=== PATIENT | female | born 1935 | race Caucasian/White ===

== ENCOUNTER 2016-09-29 13:46 | Inpatient (IN) | payer MEDICARE, BC ==
[~2016-09-29] VITALS: Ht 167.6 cm; Wt 58.8 kg
[~2016-09-29 13:46] MED LIST: CALCIUM CITRATE1 TA5 PO; CARDI-OMEGA1000 MG PO; CATAPRES0.3 MG PO; CENTRUM SILVER1 TA1 PO; COUMADIN 5MG5 MG/TAB PO; FLAX OIL1000 MG PO; GARLIC OIL500 MG PO; LANOXIN 0.120.125 MG PO; LIPITOR 10MG10 MG PO; LOPRESSOR 550 MG/TAB PO; LOVENOX 100100 MG/ML; NORVASC 5MG5 MG/TAB PO; PROTONIX 40MG T40 MG PO; PROZAC 10MG10 MG PO; QVAR0.08 MG/AC IH; RITE AID MELATON5 MG PO; RT SPIRIVA18 MCG IH; SYNTHROID 0.10.15 MG PO; TOPROL XL 50MG50 MG PO; TRAVATAN Z 2.52.5 ML OU; TYLENOL PM EXTR1 TA1 PO; ULTRAM 50MG TAB50 MG PO; VITAMIN C500 MG PO; VITAMIN D32000 IU PO; VITAMIN E1000 U/CAP PO; ZESTRIL40 MG PO; acetaminophen pm PO; soy lecithin PO
[2016-11-01] MEDS ORDERED: NORVASC 10MG10 MG PO (12:37)
[2016-11-01] MEDS ORDERED: SYNTHROID0.125 MG/T PO (12:40)
[2016-11-01] MEDS ORDERED: LASIX 20MG TABL20 MG PO (12:41)
[2016-11-01] MEDS ORDERED: TOPROL XL100 MG PO (12:41)
[2016-11-01] MEDS ORDERED: NATURE'S BLEN1200 MG PO (12:45)
[2016-11-01] MEDS ORDERED: FERROUS SU325 MG/TAB PO (12:48)
[2016-11-01] MEDS ORDERED: FOLIC ACID 40400 MCG PO (12:48)
[2016-12-06] VITALS (9 sets, daily range): BP systolic 98–126; BP diastolic 40–79; PULSE 51–72; TEMP 96.8–98.3
[2016-12-06] MEDS ORDERED: LOVENOX 4040 MG/0.4 SQ (08:17)
[2016-12-06 08:31] LABS: INR 1.1 (0.8-3.0); PROTHROMBIN TIME 11.8 SECONDS (9.7-12.8)
[2016-12-07 00:38] VITALS: BP 117/45; PULSE 59; TEMP 97.9
[2016-12-07 03:50] VITALS: BP 116/47; PULSE 58; TEMP 98.1
[2016-12-07 07:20] VITALS: BP 127/44; PULSE 58; TEMP 98.4
[2016-12-07 07:49] LABS: PROTHROMBIN TIME 11.6 SECONDS (9.7-12.8)
[2016-12-07 07:55] LABS: HEMATOCRIT 35.6 % (37.0-47.0); HEMOGLOBIN 11.5 g/dl (12.5-16.0)
[2016-12-07 11:35] VITALS: BP 110/45; PULSE 62; TEMP 98.1
[2016-12-07 15:53] VITALS: BP 122/45; PULSE 58; TEMP 98
[2016-12-07 19:28] VITALS: BP 140/41; PULSE 65; TEMP 99.5
[2016-12-08 00:24] VITALS: BP 136/44; PULSE 66; TEMP 98.5
[2016-12-08 05:17] VITALS: BP 138/43; PULSE 65; TEMP 99.6
[2016-12-08 06:48] LABS: HEMATOCRIT 34.7 % (37.0-47.0); HEMOGLOBIN 11.3 g/dl (12.5-16.0)
[2016-12-08 06:51] LABS: PROTHROMBIN TIME 22.8 SECONDS (9.7-12.8)
[2016-12-08 07:27] VITALS: BP 141/92; PULSE 63; TEMP 98.5
[2016-12-08 16:20] VITALS: BP 132/45; PULSE 57; TEMP 98.4
[2016-12-08 19:49] VITALS: BP 125/46; PULSE 58; TEMP 98.9
[2016-12-08 23:34] VITALS: BP 130/45; PULSE 53; TEMP 98.1
[2016-12-09 03:12] VITALS: BP 106/46; PULSE 59; TEMP 98.6
[2016-12-09 06:11] LABS: HEMATOCRIT 36.1 % (37.0-47.0); HEMOGLOBIN 11.7 g/dl (12.5-16.0); PROTHROMBIN TIME 22.1 SECONDS (9.7-12.8)
[2016-12-09] MEDS ORDERED: COUMADIN 1MG1 MG/TAB PO (06:51)
[2016-12-09] MEDS ORDERED: NORCO 325 MG-51 TAB PO (06:52)
[2016-12-09] MEDS ORDERED: SENOKOT S 50 MG1 TAB PO (06:53)
[2016-12-09 08:04] VITALS: BP 141/45; PULSE 68; TEMP 99
[2016-12-09 12:12] VITALS: BP 104/43; PULSE 58; TEMP 97.9
== END 2016-12-09 15:56 | disposition home or self-care (01) | DRG 470 ==
LOC: JCC 11-17 07:30
PROVIDERS: Orthopaedic Surgery
PROC: 0QPG04Z Removal of Internal Fixation Device from Right Tibia, Open Approach (ICD-10-PCS; 2016-12-06)
PROC: 0SRC0J9 Replacement of Right Knee Joint with Synthetic Substitute, Cemented, Open Approach (ICD-10-PCS; principal; 2016-12-06 10:30)
DX: M17.11 Unilateral primary osteoarthritis, right knee (principal); I10 Essential (primary) hypertension
CPT/HCPCS: A4315; A9284; C1713; C1776; J0690; J1100; J1650; J2250; J2405; J2704; J3010; J7120

== ENCOUNTER → 2016-09-30 | Outpatient (CLI) | payer MEDICARE, BC ==
[~2016-09-30] MED LIST changes: +COUMADIN 1MG1 MG/TAB PO; +FERROUS SU325 MG/TAB PO; +FOLIC ACID 40400 MCG PO; +LASIX 20MG TABL20 MG PO; +LOVENOX 4040 MG/0.4 SQ; +NATURE'S BLEN1200 MG PO; +NORCO 325 MG-51 TAB PO; +NORVASC 10MG10 MG PO; +SENOKOT S 50 MG1 TAB PO; +SYNTHROID0.125 MG/T PO; +TOPROL XL100 MG PO
== END ==
LOC: COL.LAB 13:59 → COL.VAS 13:59
DX: Z01.818 Encounter for other preprocedural examination (principal); Z86.718 Personal history of other venous thrombosis and embolism

== ENCOUNTER → 2016-11-01 | Outpatient (CLI) | payer MEDICARE, BC | LOC: COL.LAB 13:28 | DX: Z01.812 Encounter for preprocedural laboratory examination (principal); M25.861 Other specified joint disorders, right knee ==

== ENCOUNTER → 2018-04-21 | Outpatient (CLI) | payer MEDICARE, BC | LOC: COL.LAB 11:01 | DX: Z01.812 Encounter for preprocedural laboratory examination (principal) ==

== ENCOUNTER 2018-10-24 16:55 | Inpatient (IN) | payer MEDICARE, BC ==
[~2018-10-24] VITALS: Ht 167.6 cm; Wt 68.0 kg
[~2018-10-24 16:55] MED LIST changes: +CARDIZEM CD 18180 MG PO; +COUMADIN4 MG PO; +FLOVENT 110MCG7.9 GM IH; +IPRATROPIUM BROM3 M1 IH; +K-DUR20 MEQ PO; +NORCO 325 MG-7.1 TAB PO; +ONE DAILY1 TA1 PO; +TYLENOL 500MG500 MG PO
[2018-10-24 17:14] VITALS: BP 150/49; PULSE 69; TEMP 98
[2018-10-24] MEDS ORDERED: FLONASE NASAL S16 GM NS (17:37)
--- NOTE | 2018-10-24 18:45 | NUR ---
Patient up to room 345 with EMS. Alert and oriented x3. Patient and family oriented to room. Initial and 5 page complete. Pedal pulses intact. Cap refill <3 sec. BLE cool and dry to touch. Lesion noted to left gallagher with bandaids over, patient states it is from getting her leg caught on car door a couple of weeks ago . Tedhose applied to LLE. Stated pain to right hip and calf 6/10, medications given per orders. INT to left forarm. Denies further needs at this time. Reported off to machinist 2nd shift,
[2018-10-24 19:35] VITALS: BP 154/49; PULSE 75; TEMP 98.7
--- NOTE | 2018-10-24 20:00 | NUR ---
Pt. laying in bed at this time. Pt. is A&OX3, assessment complete. INT to lt. forearm patent. Pt. reports pain at a 7 on pain scale, gave pain meds per orders. Pt. denies further needs at this time. Call light within reach.
[2018-10-24 20:58] LABS: PH 6 (5-8); SQUAMOUS EPITHELIAL 0-2 /hpf; URINE APPEARANCE Clear; URINE BACTERIA None Seen /hpf; URINE BILIRUBIN Negative (NEGATIVE); URINE BLOOD Negative (NEGATIVE); URINE COLOR Yellow; URINE GLUCOSE Negative (NEGATIVE); URINE KETONE Negative (NEGATIVE); URINE LEUKOCYTE ESTERASE Negative (NEGATIVE); URINE NITRATE Negative (NEGATIVE); URINE PROTEIN(semi-quant) Negative (NEGATIVE); URINE UROBILINOGEN Negative (NEGATIVE)
[2018-10-24 21:08] LABS: COLLECTION METHOD CLEAN CATCH
[2018-10-24 23:51] VITALS: BP 145/51; PULSE 80; TEMP 98.6
[2018-10-25] VITALS (135 sets, daily range): BP systolic 115–177; BP diastolic 52–82; PULSE 86–132; TEMP 98–100.1; O2SAT 97–99
--- NOTE | 2018-10-25 05:57 | NUR ---
Pt. slept off and on through the night. Pt. remains A&OX3. IV to lt. forearm remains patent, IV fluids infusing per orders. Fuller catheter to DD, clear yellow urine noted. Pt. given morphine this am for pain. Pt. denies further needs, call light within reach.
--- NOTE | 2018-10-25 06:45 | NUR ---
Reported on to primary nurse Sheila ALEXANDRE.
--- NOTE | 2018-10-25 07:15 | NUR ---
Pt alert & oriented x4. States pain 4/10 in R Hip that radiates down to R thigh. Describes as an intermittent aching pain. Notified primary nurse Sheila ALEXANDRE about pain for administration of Morphine. Pt stated she didn't want the SCDs or Nael Hose on her R calf. SCDs and Nael Hose were only put on L calf. Bilateral upper lobes clear, bilateral lower lobes sounded slightly diminished. Encouraged use of IS. IV in L forearm CDI, no redness or tenderness. D5 1/2 NS 1000 ml running @ 60 ml/hr. Telemetry on.
[2018-10-25 07:20] LABS: INR 1.9 (0.8-3.0); PROTHROMBIN TIME 21.5 SECONDS (9.7-12.8)
[2018-10-25 07:21] LABS: BASO % 0.2 % (0.0-2.0); EOS % 0.4 % (0-4.0); GRAN # 5.3 (1.4-6.5); GRAN % 64.9 % (42.2-75.2); HEMOGLOBIN 10.3 g/dl (12.5-16.0); LYMPH # 1.7 (1.2-3.4); LYMPH % 20.7 % (20.0-51.0); MEAN CELL VOLUME 93 fl (80.0-100.0); MEAN CORPUSCULAR HEMOGLOBIN 30 pg (27.0-31.0); MEAN CORPUSCULAR HGB CONC 32 g/dl (33.0-37.0); MEAN PLATELET VOLUME 9.7 fl (7.4-10.4); MONO # 1.1 (0.1-0.6); MONO % 13.6 % (1.7-9.3); PLATELET COUNT 195 K/mm3 (130-400); RED BLOOD COUNT 3.49 M/mm3 (4.10-5.30); REDCELL DISTRIBUTION WIDTH-CV 14.8 % (11.5-14.5)
[2018-10-25 07:25] LABS: HEMATOCRIT 32.3 % (37.0-47.0)
[2018-10-25 07:31] LABS: CALCIUM 8.8 mg/dL (8.4-10.2); CREATININE, serum 0.82 mg/dL (0.52-1.25)
--- NOTE | 2018-10-25 10:01 | NUR ---
SW attended clinical rounds to discuss discharge planning. Patient lives independently at home with her . Patient's PCP is Dr Aguilar and she obtains prescriptions from [facility]. Patient does not use any home health or DME. Patient will have surgery but it is undecided when. Patient and report that if post acute rehab is needed, patient would prefer [facility]. SW will follow up with patient and after surgery with rehab choice form.
--- NOTE | 2018-10-25 10:22 | NUR ---
Initial visit; FARSHAD and her thanked Ruby On Rails Engineer for looking in on her and offering encouragement and prayer and keeping BJ in Ruby On Rails Engineer's prayers.
--- NOTE | 2018-10-25 11:50 | NUR ---
Reported off to primary nurse Sheila ALEXANDRE. Notified her of elevated temperature of 99.4. Helped pt w/ IS x4 up to 1250 ml and CDB x3.
--- NOTE | 2018-10-25 12:30 | NUR ---
Patient has been doing well. She is having a lot of pain today. No complaints of nausea. Her family has been at bedside. The student helped her get cleaned up today. No complaints of nausea. Explained the plan to her and her daughter for possible surgery this afternoon. No other changes at this time. Call light within reach. This nurse agrees with student nurses assessment.
[2018-10-25 13:53] LABS: INR 1.4 (0.8-3.0); PROTHROMBIN TIME 16.3 SECONDS (9.7-12.8)
--- NOTE | 2018-10-25 14:30 | NUR ---
Patient is going to surgery at this time. Pre-ops given. Consent on chart. Family is with patient.
--- NOTE | 2018-10-25 18:11 | NUR ---
Report received from HARVEST WORKERMarilou.
--- NOTE | 2018-10-25 18:25 | NUR ---
Pt arrived to ICU bed 2 from PACU via bed. Pt resting, easily arousable, oriented to person and time. Pt moans with movement to ICU bed. HR ST 130s on monitor. SBP 160s. Pt able to wiggle toes on right foot on command. Marilyn hospitalist ABHIJIT at bedside.
[2018-10-25 18:52] LABS: BASO % 0.2 % (0.0-2.0); EOS % 0.1 % (0-4.0); HEMOGLOBIN 10.6 g/dl (12.5-16.0); LYMPH # 2.7 (1.2-3.4); LYMPH % 18.1 % (20.0-51.0); MEAN CELL VOLUME 93 fl (80.0-100.0); MEAN CORPUSCULAR HEMOGLOBIN 30 pg (27.0-31.0); MEAN CORPUSCULAR HGB CONC 32 g/dl (33.0-37.0); MEAN PLATELET VOLUME 9.7 fl (7.4-10.4); MONO # 1.1 (0.1-0.6); MONO % 7.2 % (1.7-9.3); PLATELET COUNT 188 K/mm3 (130-400); RED BLOOD COUNT 3.58 M/mm3 (4.10-5.30); REDCELL DISTRIBUTION WIDTH-CV 14.6 % (11.5-14.5)
[2018-10-25 18:56] LABS: CALCIUM 9.1 mg/dL (8.4-10.2); CREATININE, serum 0.86 mg/dL (0.52-1.25); HEMATOCRIT 33.3 % (37.0-47.0); MAGNESIUM 1.6 mg/dL (1.6-2.3); POTASSIUM 4.4 mmol/L (3.4-5.0)
--- NOTE | 2018-10-25 19:35 | NUR ---
Bedside report received from Kailyn DICK. Pt is resting in bed with eyes open. Daughter Gina and Dr. Castro were previously here, daughter phone number to this nurse and unit phone number provided to daughter with 4 digit passcode.
--- NOTE | 2018-10-25 19:45 | NUR ---
Report given to MAYELIN Rosenbaum.
--- NOTE | 2018-10-25 19:50 | NUR ---
Pt assessment complete. Pt resting in bed currently. Pt denies any current pain. Is alert and oriented. Speech is clear and demonstrates making wants and needs known to staff at this time. Left henny hose in place with SCD. Scant drainage noted to left IV dressing.
[2018-10-26] VITALS (77 sets, daily range): BP systolic 127; BP diastolic 71; PULSE 92; TEMP 97.9; O2SAT 93–98
--- NOTE | 2018-10-26 13:37 | NUR ---
LAYNE and SW student met with the patient and patient's to discuss post-acute rehab options and presented and explained the patient choice form. The patient preferred [facility] and she did not have a second preference. Patient choice form signed by the patient's , Home, and he was provided a copy. LAYNE contacted Elissa at [facility]. Elissa reports that they can accept the patient for [facility] and that they can even accept her on the weekend. SW to continue to follow.
[2018-10-27] VITALS (46 sets, daily range): BP systolic 107–155; BP diastolic 35–56; PULSE 81–106; TEMP 97.6–99.4; O2SAT 89–96
[2018-10-27 12:24] LABS: BASO % 0.3 % (0.0-2.0); EOS # 0.1 (0.0-0.7); EOS % 0.6 % (0-4.0); GRAN # 11.1 (1.4-6.5); GRAN % 77.1 % (42.2-75.2); LYMPH # 1.9 (1.2-3.4); LYMPH % 13.6 % (20.0-51.0); MEAN CELL VOLUME 91 fl (80.0-100.0); MEAN CORPUSCULAR HGB CONC 33 g/dl (33.0-37.0); MEAN PLATELET VOLUME 9.9 fl (7.4-10.4); MONO # 1.1 (0.1-0.6); MONO % 7.9 % (1.7-9.3); PLATELET COUNT 136 K/mm3 (130-400); REDCELL DISTRIBUTION WIDTH-CV 14.5 % (11.5-14.5)
[2018-10-27 12:25] LABS: HEMATOCRIT 27.2 % (37.0-47.0); HEMOGLOBIN 8.9 g/dl (12.5-16.0); MEAN CORPUSCULAR HEMOGLOBIN 30 pg (27.0-31.0)
--- NOTE | 2018-10-27 13:53 | NUR ---
SW attended clinical rounds. Patient has been accepted to [facility]. SW informed patient and of this.
[2018-10-27 14:05] LABS: CALCIUM 8.6 mg/dL (8.4-10.2); CREATININE, serum 0.93 mg/dL (0.52-1.25); MAGNESIUM 1.9 mg/dL (1.6-2.3); POTASSIUM 4.3 mmol/L (3.4-5.0)
[2018-10-27 15:25] LABS: CALCIUM 8.5 mg/dL (8.4-10.2); CREATININE, serum 0.84 mg/dL (0.52-1.25); POTASSIUM 3.9 mmol/L (3.4-5.0)
[2018-10-27 15:35] LABS: INR 1.2 (0.8-3.0); PROTHROMBIN TIME 13.6 SECONDS (9.7-12.8)
[2018-10-27 16:12] LABS: BASO % 0.3 % (0.0-2.0); EOS # 0.2 (0.0-0.7); EOS % 2.2 % (0-4.0); GRAN # 6.9 (1.4-6.5); GRAN % 69.7 % (42.2-75.2); LYMPH # 1.6 (1.2-3.4); LYMPH % 15.9 % (20.0-51.0); MEAN CELL VOLUME 92 fl (80.0-100.0); MEAN CORPUSCULAR HGB CONC 32 g/dl (33.0-37.0); MEAN PLATELET VOLUME 10.4 fl (7.4-10.4); MONO # 1.1 (0.1-0.6); MONO % 11.3 % (1.7-9.3); PLATELET COUNT 122 K/mm3 (130-400); RED BLOOD COUNT 2.35 M/mm3 (4.10-5.30); REDCELL DISTRIBUTION WIDTH-CV 14.1 % (11.5-14.5)
[2018-10-27 16:13] LABS: HEMATOCRIT 21.7 % (37.0-47.0); HEMOGLOBIN 6.9 g/dl (12.5-16.0); MEAN CORPUSCULAR HEMOGLOBIN 29 pg (27.0-31.0)
--- NOTE | 2018-10-27 16:55 | NUR ---
Contacted Lisa MOJICA, Blood has finished transfusing. Patient c/o chills, denies pain or shortness of breath. Patient BP slightly elevated, tachy, and slight temperature elevation of 99.2. No change per PA. Will continue to monitor
--- NOTE | 2018-10-27 17:32 | NUR ---
Patient was up in chair for the majority of the day. Patient was assisted back to bed with physical therapy and walker. Patient in bed sleeping. Denies pain at this time. Denies further needs at this time. Fuller maintined to dependent drainage with clear yellow urine present. Denies further needs at this time.
[2018-10-27 18:17] LABS: COLLECTION METHOD CATHETER
[2018-10-27 19:00] LABS: MUCOUS Present /lpf; PH 9 (5-8); SQUAMOUS EPITHELIAL None Seen /hpf; URINE APPEARANCE Cloudy; URINE BACTERIA Rare /hpf; URINE BILIRUBIN Negative (NEGATIVE); URINE BLOOD Negative (NEGATIVE); URINE COLOR Yellow; URINE GLUCOSE Negative (NEGATIVE); URINE KETONE Negative (NEGATIVE); URINE LEUKOCYTE ESTERASE Negative (NEGATIVE); URINE NITRATE Negative (NEGATIVE); URINE PROTEIN(semi-quant) 2+ (NEGATIVE); URINE UROBILINOGEN Negative (NEGATIVE)
--- NOTE | 2018-10-27 20:30 | NUR ---
Pt. laying in bed with family at bedside. Pt. is A&OX3, assessment complete. IV to lt. forearm patent, IV fluids infusing per orders. Dressings to rt. hip CDI with gauze. Pt. reported pain at an 8 on pain scale, gave pain meds per orders. Pt. denies further needs, call light within reach.
[2018-10-27 23:18] LABS: HEMATOCRIT 25.3 % (37.0-47.0); HEMOGLOBIN 8.3 g/dl (12.5-16.0)
[2018-10-28] VITALS: BP 129/51; PULSE 96; TEMP 98.4
[2018-10-28 07:37] LABS: BASO % 0.4 % (0.0-2.0); EOS # 0.4 (0.0-0.7); EOS % 4.4 % (0-4.0); GRAN % 71.8 % (42.2-75.2); LYMPH % 11.5 % (20.0-51.0); MEAN CELL VOLUME 92 fl (80.0-100.0); MEAN CORPUSCULAR HGB CONC 32 g/dl (33.0-37.0); MEAN PLATELET VOLUME 10.2 fl (7.4-10.4); MONO # 0.9 (0.1-0.6); MONO % 11.3 % (1.7-9.3); PLATELET COUNT 144 K/mm3 (130-400); RED BLOOD COUNT 2.71 M/mm3 (4.10-5.30); REDCELL DISTRIBUTION WIDTH-CV 14.7 % (11.5-14.5)
[2018-10-28 07:38] VITALS: BP 114/44; PULSE 94; TEMP 98.6
[2018-10-28 07:42] LABS: CALCIUM 8.5 mg/dL (8.4-10.2); CREATININE, serum 0.75 mg/dL (0.52-1.25); POTASSIUM 4.1 mmol/L (3.4-5.0)
[2018-10-28 07:48] LABS: HEMATOCRIT 24.8 % (37.0-47.0); MEAN CORPUSCULAR HEMOGLOBIN 30 pg (27.0-31.0)
--- NOTE | 2018-10-28 08:00 | NUR ---
Patient in bed resting. Alert and oriented x 3. Shift assessment complete. Dressing to right lateral leg x3, CDI. Edema noted to BLE, +2 pitting. IV fluids infusing per orders via pump to left forarm. Tedhose to LLE. SCDS to BLE. States mild pain to right hip, will let nursing staff when she feels like she needs something for pain. Denies further needs at this time.
[2018-10-28 12:21] VITALS: BP 169/55; PULSE 110; TEMP 99
--- NOTE | 2018-10-28 14:50 | NUR ---
Assisted patient to comode, x2 assist with gait belt and walker. Patient had a small BM
[2018-10-28 16:17] VITALS: BP 151/61; PULSE 88; TEMP 98.3
--- NOTE | 2018-10-28 17:49 | NUR ---
Patient has been up in chair throughout the day. X2 assist with walker and gait belt back to bed. Spouse at bedside. SCDs to BLE maintained while in bed. Patient refused dinner. Lidocaine patch to right hip. Has requested pain medication through the day, given medication per orders. Spouse at bedside. Denies further needs at this time. Will report off to slot shift manager.
[2018-10-28 19:16] VITALS: BP 152/54; PULSE 97; TEMP 100.2
--- NOTE | 2018-10-28 23:08 | NUR ---
RESTING QUIETLY. NO c/o PAIN AT REST. NO N/V. DRESSINGS TO RT HIP APPEAR CD&I. PALPABLE PEDAL PULSES.
[2018-10-28 23:55] VITALS: BP 135/47; PULSE 90; TEMP 98.4
[2018-10-29 03:59] VITALS: BP 137/43; PULSE 83; TEMP 98.2
--- NOTE | 2018-10-29 06:44 | NUR ---
RESTING QUIETLY. NO c/o N/V. PT DENIED NEED FOR PAIN MEDS DURING THE NIGHT.
[2018-10-29 07:42] LABS: BASO % 0.4 % (0.0-2.0); EOS # 0.4 (0.0-0.7); EOS % 5.4 % (0-4.0); GRAN # 4.7 (1.4-6.5); GRAN % 66.2 % (42.2-75.2); LYMPH # 1.1 (1.2-3.4); LYMPH % 15.9 % (20.0-51.0); MEAN CELL VOLUME 93 fl (80.0-100.0); MEAN CORPUSCULAR HGB CONC 31 g/dl (33.0-37.0); MEAN PLATELET VOLUME 9.9 fl (7.4-10.4); MONO # 0.8 (0.1-0.6); MONO % 11.5 % (1.7-9.3); PLATELET COUNT 182 K/mm3 (130-400); RED BLOOD COUNT 2.66 M/mm3 (4.10-5.30); REDCELL DISTRIBUTION WIDTH-CV 14.6 % (11.5-14.5)
[2018-10-29 07:50] LABS: INR 1.2 (0.8-3.0); PROTHROMBIN TIME 14.1 SECONDS (9.7-12.8)
[2018-10-29 07:52] LABS: HEMATOCRIT 24.7 % (37.0-47.0); HEMOGLOBIN 7.7 g/dl (12.5-16.0); MEAN CORPUSCULAR HEMOGLOBIN 29 pg (27.0-31.0)
[2018-10-29 07:55] LABS: CALCIUM 8.6 mg/dL (8.4-10.2); CREATININE, serum 0.8 mg/dL (0.52-1.25); POTASSIUM 4.2 mmol/L (3.4-5.0)
[2018-10-29 08:07] VITALS: BP 139/52; PULSE 89; TEMP 98.8
[2018-10-29] MEDS ORDERED: DULCOLAX S10 MG/SUPP RC (12:01)
[2018-10-29] MEDS ORDERED: DULCOLAX STOOL100 MG PO (12:01)
[2018-10-29] MEDS ORDERED: Lidocaine 4% Patch TP (12:02)
[2018-10-29] MEDS ORDERED: NORCO 325 MG-7.1 TAB PO (12:03)
[2018-10-29] MEDS ORDERED: LOVENOX 3030 MG/0.3 SQ (12:04)
[2018-10-29 12:09] VITALS: BP 102/43; PULSE 75; TEMP 98.8
--- NOTE | 2018-10-29 13:34 | NUR ---
railway traction line worker contacted [facility] and spoke with Zehra Kuo ([phone]) regarding the patient's possibility of discharging via [facility] to [facility] and [place] reported that due to only one ambulance being in service and bad road conditions from inclement snowy weather they are not able to transport that patient safely today. railway traction line worker set-up discharge transportation via [facility] for 10/30/18, at 10-10:30am. railway traction line worker informed patient's and nurse Christiane of patient's discharge plan. railway traction line worker also updated Tyce at [facility] of the patient's discharge plan (phone number [phone] and fax number [phone]). fiscal services director will follow up tomorrow to fax discharge orders and information.
[2018-10-29 16:15] VITALS: BP 113/45; PULSE 78; TEMP 99
--- NOTE | 2018-10-29 18:00 | NUR ---
Complained of pain in legs and inability to move legs. Encouraged to do ankle pumps. Pain improved with prn [place] and Morphine. Transferred to commode in PM with two staff assist. Holds onto walker but unable to take steps. Returned to bed. Family at bedside this shift.
[2018-10-29 19:36] VITALS: BP 119/51; BP 125/56; PULSE 85; TEMP 99.6; TEMP 99.8
[2018-10-30 00:34] VITALS: BP 125/45; PULSE 85; TEMP 99.7
[2018-10-30 03:59] VITALS: BP 125/38; PULSE 88; TEMP 99.1
[2018-10-30 04:08] VITALS: BP 180/95; PULSE 96; TEMP 97.4
--- NOTE | 2018-10-30 05:03 | NUR ---
RESTING QUIETLY. PT HAS DENIED NEED FOR PAIN MEDS DURING THE NIGHT. NO N/V. DRESSINGS TO RT HIP CD&I.
[2018-10-30 06:11] LABS: BASO % 0.4 % (0.0-2.0); EOS # 0.3 (0.0-0.7); GRAN # 5.2 (1.4-6.5); GRAN % 61.4 % (42.2-75.2); LYMPH # 1.6 (1.2-3.4); LYMPH % 18.9 % (20.0-51.0); MEAN CELL VOLUME 93 fl (80.0-100.0); MEAN CORPUSCULAR HGB CONC 32 g/dl (33.0-37.0); MEAN PLATELET VOLUME 9.5 fl (7.4-10.4); MONO # 1.2 (0.1-0.6); MONO % 14.4 % (1.7-9.3); PLATELET COUNT 211 K/mm3 (130-400); RED BLOOD COUNT 2.56 M/mm3 (4.10-5.30); REDCELL DISTRIBUTION WIDTH-CV 14.5 % (11.5-14.5)
[2018-10-30 06:12] LABS: HEMATOCRIT 23.8 % (37.0-47.0); HEMOGLOBIN 7.6 g/dl (12.5-16.0); MEAN CORPUSCULAR HEMOGLOBIN 30 pg (27.0-31.0)
[2018-10-30 06:25] LABS: INR 1.3 (0.8-3.0); PROTHROMBIN TIME 15.3 SECONDS (9.7-12.8)
[2018-10-30 06:28] LABS: CALCIUM 8.2 mg/dL (8.4-10.2); CREATININE, serum 0.77 mg/dL (0.52-1.25); POTASSIUM 3.9 mmol/L (3.4-5.0)
[2018-10-30 07:59] VITALS: BP 138/47; PULSE 92; TEMP 99.9
--- NOTE | 2018-10-30 09:21 | NUR ---
LAYNE attended clinical rounds. Patient will discharge today to [facility]. Weekend LAYNE arranged for [facility] to transport patient at 10am. SW presented IM to patient. She signed but did not request a copy. LAYNE will fax dischage orders once they're completed.
--- NOTE | 2018-10-30 09:33 | NUR ---
REPORT CALLED TO [facility]ES [facility].
--- NOTE | 2018-10-30 10:15 | NUR ---
DOWLING CATHETER DISCONTINUED PER ORDERS, TIP INTACT PT TOLERATED WELL, INT DISCONTINUED AND TIP INTACT. DRESSED WITH GAUZE AND TAPE.
--- NOTE | 2018-10-30 10:16 | NUR ---
PATIENT TRANSFERED VIA EMS TO [facility].
== END 2018-10-30 10:20 | disposition swing bed (61) | DRG 482 ==
LOC: SURG 16:55 → ICU 10-25 18:18 → SURG 10-27 00:50
PROVIDERS: Hospitalist; Nurse Practitioner Family; Orthopaedic Surgery Sports Medicine; Physician Assistant; ADMIT Hospitalist
PROC: 0QS636Z Reposition Right Upper Femur with Intramedullary Internal Fixation Device, Percutaneous Approach (ICD-10-PCS; principal; 2018-10-25 16:18)
DX: S72.21XA Displaced subtrochanteric fracture of right femur, initial encounter for closed fracture (principal); W18.30XA Fall on same level, unspecified, initial encounter; I48.91 Unspecified atrial fibrillation; I10 Essential (primary) hypertension; J44.9 Chronic obstructive pulmonary disease, unspecified; Z86.711 Personal history of pulmonary embolism; Z79.01 Long term (current) use of anticoagulants; Z86.718 Personal history of other venous thrombosis and embolism; I34.1 Nonrheumatic mitral (valve) prolapse; F41.8 Other specified anxiety disorders; E03.9 Hypothyroidism, unspecified; G47.33 Obstructive sleep apnea (adult) (pediatric); D50.0 Iron deficiency anemia secondary to blood loss (chronic); E78.5 Hyperlipidemia, unspecified; D50.9 Iron deficiency anemia, unspecified
CPT/HCPCS: 99222-AI; 99231-AI; 99233-AI; 99239; A4314; C1713; J0690; J1650; J2250; J2270; J2704; J2795; J3010; J3475; J7120; J7121; P9016